=== PATIENT | male | born 1990 | race Hispanic/Latino ===

== ENCOUNTER 2018-09-11 22:06 | Emergency (ER) | payer OTHER ==
[2018-09-11 22:26] VITALS: RESP 18
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
[2018-09-12] MEDS ORDERED: Tdap Vaccine 0.5 ml Vial (10-64 yrs) IM ONE ×2 (01:08→01:21)
[2018-09-12 08:04] VITALS: BP 121/77; PULSE 71; TEMP 98; O2SAT 99
== END 2018-09-12 01:30 | disposition home or self-care (01) ==
LOC: H.ER 22:06
DX: S01.112A Laceration without foreign body of left eyelid and periocular area, initial encounter (principal); W22.8XXA Striking against or struck by other objects, initial encounter; Y92.89 Other specified places as the place of occurrence of the external cause